=== PATIENT | male | born 1980 | race American Indian/Alaskan Native ===

== ENCOUNTER 2017-02-20 13:37 | Emergency (ER) | payer OTHER ==
[2017-02-20 14:01] VITALS: BP 1554/96
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
[2017-02-20] MEDS ORDERED: MOTRIN PO ONE (16:44)
== END 2017-02-20 16:57 | disposition home or self-care (01) ==
LOC: ED 13:37
DX: S09.90XA Unspecified injury of head, initial encounter (principal); S16.1XXA Strain of muscle, fascia and tendon at neck level, initial encounter; F17.200 Nicotine dependence, unspecified, uncomplicated; V49.49XA Driver injured in collision with other motor vehicles in traffic accident, initial encounter; Y93.89 Activity, other specified; Y99.8 Other external cause status; Y92.488 Other paved roadways as the place of occurrence of the external cause
CPT/HCPCS: 70450; 72125